=== PATIENT | female | born 1985 | race Caucasian/White ===

== ENCOUNTER 2016-05-18 19:45 | Emergency (ER) | payer MEDICAID ==
[2016-05-18 19:58] VITALS: BP 131/78; PULSE 68; RESP 16; TEMP 98.2; O2SAT 99
--- NOTE | 2016-05-18 20:38 | ED PDOC ---
HPI: Allergic Reaction Time Seen by Provider: 05/18/16 20:16 Chief Complaint (Nursing): Abnormal Skin Integrity Chief Complaint (Provider): abnormal skin integrity History Per: Patient History/Exam Limitations: no limitations Onset/Duration Of Symptoms: Days (x 1 year) Current Symptoms Are (Timing): Still Present Additional Complaint(s): Justin Martinez is a 30 year old female, with no previous medical history, who presents to the ED for the evaluation of skin discoloration to her left underarm which she states has been ongoing since "last summer". pt states discoloration is now presenting in the right armpit. Pt denies any additional medical complaints. PMD: none provided Past Medical History Reviewed: Historical Data, Nursing Documentation, Vital Signs Vital Signs: Last Vital Signs Temp 98.2 F 05/18/16 19:55 Pulse 68 05/18/16 19:55 Resp 16 05/18/16 19:55 BP 131/78 05/18/16 19:55 Pulse Ox 99 05/18/16 19:55 - Medical History PMH: No Chronic Diseases - Surgical History Surgical History: No Surg Hx - Family History Family History: States: Unknown Family Hx - Home Medications Home Medications: Ambulatory Orders Medication Instructions Recorded Famotidine [Pepcid] 20 mg PO BID #10 tab 02/28/15 Amoxicillin/Clavulanate [Augmentin 1 tab PO BID #14 tab 10/16/15 875 MG-125 MG] Ibuprofen [Motrin] 600 mg PO Q6 PRN #15 tab 10/16/15 Selenium Sulfide [Selenium Sulfide 5 ml TOP DAILY #120 ml 05/18/16 120 ml] - Allergies Allergies/Adverse Reactions: Allergies Allergy/AdvReac Type Severity Reaction Status Date / Time No Known Allergies Allergy Verified 05/18/16 19:55 Review of Systems ROS Statement: Except As Marked, All Systems Reviewed And Found Negative Skin: Positive for: Other (discoloration of the armpit ) Physical Exam - Reviewed Nursing Documentation Reviewed: Yes Vital Signs Reviewed: Yes - Physical Exam Appears: Positive for: Well, Non-toxic, No Acute Distress Skin: Positive for: Warm, Dry. Negative for: Normal Color (hyperpigmented skin region in bilateral axilla) Neurologic/Psych: Positive for: Alert, Oriented - ECG O2 Sat by Pulse Oximetry: 99 (RA) Pulse Ox Interpretation: Normal Disposition - Clinical Impression Clinical Impression: Tinea versicolor - Patient ED Disposition Is Patient to be Admitted: No - Disposition Referrals: [facility] [Outside] Disposition: Routine/Home Disposition Time: 20:20 Condition: FAIR Prescriptions: Selenium Sulfide [Selenium Sulfide 120 ml] 5 ml TOP DAILY #120 ml Instructions: Tinea Versicolor (ED) MDMA - Impression/Plan/Differential Dx Note:: Initial Impression: Tinea Versicolor Initial Plan: * physical exam * disposition Scribe Attestation: Documented by Marah Parsons, acting as a scribe for Trinity Gooden PA-C. Provider Scribe Attestation: All medical record entries made by the Scribe were at my direction and personally dictated by me. I have reviewed the chart and agree that the record accurately reflects my personal performance of the history, physical exam, medical decision making, and the department course for this patient. I have also personally directed, reviewed, and agree with the discharge instructions and disposition.
== END 2016-05-18 22:15 | disposition home or self-care (01) ==
LOC: H.ER 19:45
DX: B36.0 Pityriasis versicolor (principal)

== ENCOUNTER 2016-05-28 04:08 | Emergency (ER) | payer MEDICAID ==
[2016-05-28 04:27] VITALS: BP 128/92; PULSE 90; RESP 16; TEMP 98.2; O2SAT 99
[2016-05-28] MEDS ORDERED: Sodium Chloride 0.9% 1,000 ML IV STA (04:33)
--- NOTE | 2016-05-28 04:36 | ED PDOC ---
HPI: General Adult Time Seen by Provider: 05/28/16 04:27 Chief Complaint (Nursing): Dizziness/Lightheaded Chief Complaint (Provider): dizziness History Per: Patient History/Exam Limitations: no limitations Onset/Duration Of Symptoms: Hrs Current Symptoms Are (Timing): Gone Now Additional History Per: Patient Additional Complaint(s): 30 y/o female presents for eval of dizziness x 2 hours. Patient states she was out smoking hookah tonight; when she got home she started to feel dizzy so she laid down; patient states she then felt a sensation that her throat was "tight" and "closing", with associated chest tightness, sweating, and difficulty breathing. Patient states symptoms lasted approx 30 mins then improved when she stepped outside to come to ED. Denies fever, headache, vision changes, extremity numbness/weakness, chest pain, shortness of breath, palpitations, leg pain/swelling, recent travel, OCP use. Patient notes intermittent pain to right side of throat x months; states she is very concerned because she smokes hookah "a lot". Past Medical History Reviewed: Historical Data, Nursing Documentation, Vital Signs Vital Signs: Last Vital Signs Temp 98.2 F 05/28/16 04:23 Pulse 90 05/28/16 04:23 Resp 16 05/28/16 04:23 BP 128/92 H 05/28/16 04:23 Pulse Ox 99 05/28/16 06:11 - Medical History PMH: No Chronic Diseases - Surgical History Surgical History: No Surg Hx - Family History Family History: States: Unknown Family Hx - Social History Alcohol: None Drugs: Denies - Home Medications Home Medications: Ambulatory Orders Medication Instructions Recorded Famotidine [Pepcid] 20 mg PO BID #10 tab 02/28/15 Amoxicillin/Clavulanate [Augmentin 1 tab PO BID #14 tab 10/16/15 875 MG-125 MG] Ibuprofen [Motrin] 600 mg PO Q6 PRN #15 tab 10/16/15 Selenium Sulfide [Selenium Sulfide 5 ml TOP DAILY #120 ml 05/18/16 120 ml] - Allergies Allergies/Adverse Reactions: Allergies Allergy/AdvReac Type Severity Reaction Status Date / Time No Known Allergies Allergy Verified 05/18/16 19:55 Review of Systems ROS Statement: Except As Marked, All Systems Reviewed And Found Negative ENT: Positive for: Throat Pain Cardiovascular: Positive for: Chest Pain Neurological: Positive for: Dizziness Physical Exam - Reviewed Nursing Documentation Reviewed: Yes Vital Signs Reviewed: Yes - Physical Exam Appears: Positive for: Well, Non-toxic, No Acute Distress Head Exam: Positive for: ATRAUMATIC, NORMAL INSPECTION, NORMOCEPHALIC Skin: Positive for: Normal Color Eye Exam: Positive for: Normal appearance ENT: Positive for: Normal ENT Inspection Cardiovascular/Chest: Positive for: Regular Rate, Rhythm Respiratory: Positive for: Normal Breath Sounds Gastrointestinal/Abdominal: Positive for: Normal Exam Back: Positive for: Normal Inspection Extremity: Positive for: Normal ROM Lymphatic: Positive for: Normal Exam Neurologic/Psych: Positive for: Alert, Oriented - Laboratory Results Result Diagrams: 05/28/16 04:53 05/28/16 04:53 - ECG ECG: Positive for: Viewed By Me (reviewed by ED attending) ECG Rhythm: Positive for: Sinus Rhythm O2 Sat by Pulse Oximetry: 99 - Progress ED Course And Treament: labs, ekg, IV fluids, xray EXAM: CT Neck Without Intravenous Contrast CLINICAL HISTORY: 30 years old, female; Pain; Neck pain; Additional info: Right-sided throat pain TECHNIQUE: Axial computed tomography images of the neck without intravenous contrast. This CT exam was performed using one or more of the following dose reduction techniques: automated exposure control, adjustment of the mA and/or kV according to patient size, and/or use of iterative reconstruction technique. Coronal and sagittal reformatted images were created and reviewed. EXAM DATE/TIME: 05/28/2016 5:35 AM COMPARISON: No relevant prior studies available. FINDINGS: Nasopharynx: Unremarkable. Oropharynx: Unremarkable. No significant tonsillar enlargement. Hypopharynx: Unremarkable. Larynx: Unremarkable. Normal epiglottis. Trachea: Unremarkable. Retropharyngeal space: Unremarkable. Submandibular/parotid glands: Unremarkable. Glands are normal in size. Thyroid: Unremarkable. No enlarged or calcified nodules. Bones/joints: No acute fracture. Soft tissues: Unremarkable. Vasculature: No acute findings. Lymph nodes: Jugular, submandibular and submental nodes of 1 cm and less. Dental: Limited evaluation of oral cavity secondary to dental artifacts. Lung apices: Unremarkable as visualized. IMPRESSION: No acute inflammation, neck mass or pathological adenopathy. ON re-eval, patient resting comfortably; no acute complaints. Patient educated on findings discharged with instructions to follow up PMD. Follow up ENT. Ibuprofen/Tylenol PRN throat pain. Advised to stop smoking hookah. Return to ED for worsening/concerning symptoms. Disposition - Clinical Impression Clinical Impression: Anxiety attack, Pain in throat - Patient ED Disposition Is Patient to be Admitted: No Counseled Patient/Family Regarding: Studies Performed, Diagnosis, Need For Followup - Disposition Referrals: Ernst Trujillo MD [Staff Provider] - Disposition: Routine/Home Disposition Time: 06:09 Condition: GOOD Instructions: Anxiety (ED) Handoff Comments: pending xray, final dispo
[2016-05-28 04:56] LABS: BASO # 0.1 K/uL (0.0-0.2); BASO % 0.6 % (0.0-2.0); EOS # 0.1 K/uL (0.0-0.7); EOS % 0.7 % (0.0-4.0); HEMATOCRIT 38.2 % (34.0-47.0); LYMPH # 1.9 K/uL (1.0-4.3); LYMPH % 20.8 % (20.0-40.0); MEAN CELL VOLUME 89.9 fl (81.0-99.0); MEAN CORPUSCULAR HEMOGLOBIN 29.6 pg (27.0-31.0); MEAN CORPUSCULAR HGB CONC 32.9 g/dL (33.0-37.0); MEAN PLATELET VOLUME 8.9 fl (7.2-11.7); MONO # 0.5 K/uL (0.0-0.8); MONO % 5.3 % (0.0-10.0); NEUT # 6.6 K/uL (1.8-7.0); NEUT % 72.6 % (50.0-75.0)
[2016-05-28 05:07] LABS: ALB/GLOB RATIO 1.1 (1.0-2.1); ALKALINE PHOSPHATASE 47 U/L (38-126); ALT/SGPT 26 U/L (9-52); AST/SGOT 25 U/L (14-36); BILIRUBIN,TOTAL 1.2 mg/dl (0.2-1.3); BLOOD UREA NITROGEN 13 mg/dl (7-17); CALCIUM 9.4 mg/dL (8.4-10.2); CARBON DIOXIDE 26 mmol/L (22-30); CHLORIDE 104 mmol/L (98-107); GFR AFRICAN-AMERICAN > 60; GLUCOSE,RANDOM 116 mg/dL (65-105); POTASSIUM 3.7 MMOL/L (3.6-5.0); SODIUM 145 mmol/l (132-148); TOTAL PROTEIN 7.9 G/DL (6.3-8.2)
[2016-05-28 05:37] LABS: THYROID STIMULATING HORMONE 2.05 mIU/ML (0.46-4.68)
--- NOTE | 2016-05-28 06:07 | CT ---
EXAM: CT Neck Without Intravenous Contrast CLINICAL HISTORY: 30 years old, female; Pain; Neck pain; Additional info: Right-sided throat pain TECHNIQUE: Axial computed tomography images of the neck without intravenous contrast. This CT exam was performed using one or more of the following dose reduction techniques: automated exposure control, adjustment of the mA and/or kV according to patient size, and/or use of iterative reconstruction technique. Coronal and sagittal reformatted images were created and reviewed. EXAM DATE/TIME: 05/28/2016 5:35 AM COMPARISON: No relevant prior studies available. FINDINGS: Nasopharynx: Unremarkable. Oropharynx: Unremarkable. No significant tonsillar enlargement. Hypopharynx: Unremarkable. Larynx: Unremarkable. Normal epiglottis. Trachea: Unremarkable. Retropharyngeal space: Unremarkable. Submandibular/parotid glands: Unremarkable. Glands are normal in size. Thyroid: Unremarkable. No enlarged or calcified nodules. Bones/joints: No acute fracture. Soft tissues: Unremarkable. Vasculature: No acute findings. Lymph nodes: Jugular, submandibular and submental nodes of 1 cm and less. Dental: Limited evaluation of oral cavity secondary to dental artifacts. Lung apices: Unremarkable as visualized. IMPRESSION: No acute inflammation, neck mass or pathological adenopathy.
== END 2016-05-28 06:04 | disposition home or self-care (01) ==
LOC: H.ER 04:08
DX: F41.9 Anxiety disorder, unspecified (principal); R07.0 Pain in throat

== ENCOUNTER 2016-08-22 00:07 | Emergency (ER) | payer MEDICAID ==
[2016-08-22 00:35] VITALS: BP 128/77; PULSE 74; RESP 16; TEMP 98.5; O2SAT 100
--- NOTE | 2016-08-22 01:18 | ED PDOC ---
HPI: Female Pain Time Seen by Provider: 08/22/16 00:50 Chief Complaint (Nursing): Female Genitourinary Additional History Per: Patient Additional Complaint(s): 30F p/w irritation and itching for 1 week associated initially with whitish discharge which she treated with OTC 3- day Monistat, but then discharge changed to yellowish with an "odor" and the development of mild pelvic discomfort yesterday. She denies fevers, chills, urinary symptoms. 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: ; LMP- 08/07/16; STI- Chlamydia 4yrs ago; Sexually Active w/ men, last encounter 08/18/16, unprotected; Control- No; PAP- 4yrs ago WNL ALL: NKDA RIA: Doxacillin for acne Abnormal Vaginal Bleeding: No Last Menstral Period: 08/07/16 : 0 Para: 0 Miscarriage: 0 Past Medical History Vital Signs: Last Vital Signs Temp 36.9 C 08/22/16 00:32 Pulse 74 08/22/16 00:32 Resp 16 08/22/16 00:32 BP 128/77 08/22/16 00:32 Pulse Ox 100 08/22/16 00:32 - Family History Family History: States: Unknown Family Hx - Home Medications Home Medications: Ambulatory Orders Medication Instructions Recorded Famotidine [Pepcid] 20 mg PO BID #10 tab 02/28/15 Amoxicillin/Clavulanate [Augmentin 1 tab PO BID #14 tab 10/16/15 875 MG-125 MG] Ibuprofen [Motrin] 600 mg PO Q6 PRN #15 tab 10/16/15 Selenium Sulfide [Selenium Sulfide 5 ml TOP DAILY #120 ml 05/18/16 120 ml] Nitrofurantoin Macrocrystals 100 mg PO Q12H #14 cap 08/22/16 [Macrobid] - Allergies Allergies/Adverse Reactions: Allergies Allergy/AdvReac Type Severity Reaction Status Date / Time No Known Allergies Allergy Verified 05/18/16 19:55 Review of Systems Genitourinary Female: Positive for: Vaginal Discharge (yellowish), Pelvic Pain ( mild) Physical Exam - Reviewed Vital Signs Reviewed: Yes - Physical Exam Appears: Positive for: Well, Non-toxic, No Acute Distress Head Exam: Positive for: ATRAUMATIC, NORMAL INSPECTION Skin: Positive for: Normal Color, Warm Eye Exam: Positive for: EOMI, PERRL ENT: Negative for: Pharyngeal Erythema Neck: Positive for: Supple Cardiovascular/Chest: Positive for: Regular Rate, Rhythm. Negative for: JVD Respiratory: Positive for: Normal Breath Sounds. Negative for: Rales, Wheezing Gastrointestinal/Abdominal: Positive for: Normal Exam, Bowel Sounds, Soft. Negative for: Tenderness Pelvic Exam: Positive for: External Exam Normal, Speculum Exam Normal, Bimanual Exam Normal, No Cerv. Motion Tender, No Masses. Negative for: Discharge, Lesions, Mass, Ulcers Extremity: Positive for: Capillary Refill. Negative for: Pedal Edema Neurologic/Psych: Positive for: Alert, Mood/Affect (WNL) - ECG O2 Sat by Pulse Oximetry: 100 Medical Decision Making Medical Decision MakinF with UTI vs. STI vs. vs. BV - U preg - Urine dip - Urinalysis - GC/Chlamydia Culture Urine Dip- Positive for Nitrites, Blood, and LE Disposition - Clinical Impression Clinical Impression: Urinary tract infection, Urinary tract infection - Patient ED Disposition Is Patient to be Admitted: No Doctor Will See Patient In The: Office Counseled Patient/Family Regarding: Studies Performed, Diagnosis, Need For Followup, Rx Given - Disposition Disposition: Routine/Home Disposition Time: 01:59 Condition: GOOD
[2016-08-22 01:45] LABS: SQUAMOUS EPITHIAL 3 /hpf (0-5); URINE BACTERIA MANY (<OCC); URINE BILIRUBIN NEGATIVE (NEGATIVE); URINE BLOOD SMALL (NEGATIVE); URINE CLARITY SLIGHTY-CLOUDY (Clear); URINE COLOR YELLOW (YELLOW); URINE GLUCOSE (UA) NEG (Normal); URINE LEUKOCYTE ESTERASE SMALL Leu/uL (Negative); URINE NITRATE NEGATIVE (NEGATIVE); URINE PROTEIN 30 mg/dL (NEGATIVE); URINE UROBILINOGEN 0.2-1.0 mg/dL (0.2-1.0)
== END 2016-08-22 02:40 | disposition home or self-care (01) ==
LOC: H.ER 00:07
DX: N39.0 Urinary tract infection, site not specified (principal)

== ENCOUNTER 2017-10-20 17:20 | Emergency (ER) | payer MEDICAID ==
[2017-10-20 17:28] VITALS: RESP 18
[2017-10-20 18:42] LABS: BASO # 0.1 K/uL (0.0-0.2); BASO % 0.8 % (0.0-2.0); EOS # 0.1 K/uL (0.0-0.7); EOS % 0.9 % (0.0-4.0); HEMOGLOBIN 12.3 g/dL (12.0-16.0); LYMPH # 2.5 K/uL (1.0-4.3); MEAN CELL VOLUME 88.9 fl (81.0-99.0); MEAN CORPUSCULAR HEMOGLOBIN 29.9 pg (27.0-31.0); MEAN CORPUSCULAR HGB CONC 33.7 g/dL (33.0-37.0); MEAN PLATELET VOLUME 8.9 fl (7.2-11.7); MONO # 0.4 K/uL (0.0-0.8); MONO % 5.2 % (0.0-10.0); NEUT # 5.2 K/uL (1.8-7.0); NEUT % 63.1 % (50.0-75.0); RBC 4.12 Mil/uL (3.80-5.20); RED CELL DISTRIBUTION WIDTH 14.2 % (11.5-14.5); WHITE BLOOD COUNT 8.2 K/uL (4.8-10.8)
[2017-10-20 18:49] LABS: ALB/GLOB RATIO 1.2 (1.0-2.1); ALBUMIN 4.3 g/dL (3.5-5.0); ALT/SGPT 23 U/L (9-52); AST/SGOT 17 U/L (14-36); BLOOD UREA NITROGEN 13 mg/dl (7-17); CALCIUM 9.9 mg/dL (8.4-10.2); GFR NON-AFRICAN AMERICAN > 60
--- NOTE | 2017-10-20 19:38 | ED PDOC ---
HPI: General Adult Time Seen by Provider: 10/20/17 17:59 Chief Complaint (Nursing): Breast Problem History Per: Patient Additional Complaint(s): Pt. states this morning she noticed pain, redness, and swelling to the L breast. Pt. states she believes this is due to a hormonal issue as 3 weeks ago she developed cystic acne. 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 LMP: "last week." Denies nipple discharge, fever, family hx of breast CA, trauma, chest pain, SOB, cough. Past Medical History Reviewed: Historical Data, Nursing Documentation, Vital Signs Vital Signs: Last Vital Signs Temp 97.7 F 10/20/17 17:25 Pulse 77 10/20/17 17:25 Resp 18 10/20/17 17:25 BP 124/88 10/20/17 17:25 Pulse Ox 98 10/20/17 17:25 - Surgical History Surgical History: No Surg Hx - Family History Family History: States: No Known Family Hx - Home Medications Home Medications: Ambulatory Orders Medication Instructions Recorded Famotidine [Pepcid] 20 mg PO BID #10 tab 02/28/15 Amoxicillin/Clavulanate [Augmentin 1 tab PO BID #14 tab 10/16/15 875 MG-125 MG] Ibuprofen [Motrin] 600 mg PO Q6 PRN #15 tab 10/16/15 Selenium Sulfide [Selenium Sulfide 5 ml TOP DAILY #120 ml 05/18/16 120 ml] Nitrofurantoin Macrocrystals 100 mg PO Q12H #14 cap 08/22/16 [Macrobid] - Allergies Allergies/Adverse Reactions: Allergies Allergy/AdvReac Type Severity Reaction Status Date / Time No Known Allergies Allergy Verified 10/20/17 17:25 Review of Systems ROS Statement: Except As Marked, All Systems Reviewed And Found Negative Physical Exam - Physical Exam Appears: Positive for: Well, Non-toxic, No Acute Distress Skin: Positive for: Normal Color, Warm. 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 Disposition - Clinical Impression Clinical Impression: Cyst of breast - Patient ED Disposition Is Patient to be Admitted: Transfer of Care (Signed out to Shelton OLSEN pending US results and final disposition) - Disposition Disposition Time: 20:00 Condition: STABLE
--- NOTE | 2017-10-20 20:17 | ED PDOC ---
- Laboratory Results Result Diagrams: 10/20/17 18:30 10/20/17 18:30 Urine POC: Negative - ECG O2 Sat by Pulse Oximetry: 98 (RA) Pulse Ox Interpretation: Normal Medical Decision Making Medical Decision Making: Patient endorsed to narrative writer, Shelton OLSEN, at 1999 due to shift change. Pertinent details reviewed. Patient pending U/S results and surgical consult. Labs reviewed and grossly unremarkable. No elevation of WBCs. Upreg: Negative 2044 U/S reviewed, radiology report follows EXAM: US Left Breast, Limited CLINICAL HISTORY: 31 years old, female; Pain and signs and symptoms; Mass, lump , or swelling; Left; Breast pain; Additional info: 3 o'clock position with swelling and redness TECHNIQUE: Real-time ultrasound scan of the left breast with image documentation. COMPARISON: No relevant prior studies available. FINDINGS: Breast: At the 3:00 position 1 cm from the nipple is a complex lesion with cystic and solid components with no internal blood flow. Internal echogenic foci. This measures 1.6 x 1.1 x 1.5 cm possibly representing an abscess. 5 mm cystic lesion at the 3:00 position 2 cm from the nipple. IMPRESSION: 1. At the 3:00 position 1 cm from the nipple is a complex lesion with cystic and solid components with no internal blood flow. This measures 1.6 x 1.1 x 1.5 cm possibly representing an abscess. Recommend dedicated breast imaging center evaluation for this indeterminate lesion. 2. 5 mm cystic lesion at the 3:00 position 2 cm from the nipple. Recommend dedicated breast center imaging for this indeterminate lesion. Thank you for allowing us to participate in the care of your patient. Dictated and Authenticated by: Nacho Easley MD 10/20/2017 8:32 PM Eastern Time ([place] & [place]) Consult placed to surgical aides teacher. 2049 Case discussed with surgical aides teacher, Prakash Hart, who is agreeable to bedside evaluation. 2119 Per surgical consult, patient to be discharged on Augmentin, warm compresses encouraged, and can follow up in office with Dr Diaz. On re-evaluation, patient reports improvement of symptoms. On exam, patient remains AAOx3, in no acute distress. Lungs clear to auscultation, cardiac RRR, repeat neuro exam shows no focal findings. VSS, stable for discharge. Lab/Diagnostic results d/w the patient in great detail. Diagnosis of breast abscess d/w the patient. Based on history, exam and diagnostic results, plan will be for outpatient follow up with Dr Diza. Patient instructed to follow-up with pmd / referral provided / the clinic in 1- 2 days without fail. Advised to take medication as prescribed. Return to the emergency room at any time for any new or worsening symptoms. Patient states she fully agrees with and understands discharge instructions. States that she agrees with the plan and disposition. Verbalized and repeated discharge instructions and plan. I have given the patient opportunity to ask any additional questions. Disposition Counseled Patient/Family Regarding: Studies Performed, Diagnosis, Need For Followup, Rx Given - Clinical Impression Clinical Impression: Abscess of breast, Pain of breast - POA Present On Arrival: None - Disposition Referrals: Caleb Diaz MD [Staff Provider] - Disposition: Routine/Home Disposition Time: 21:25 Condition: STABLE Additional Instructions: The emergency medical care you received today was directed towards the acute presenting symptoms. If you were prescribed any medication, please fill it and give as directed. It may take several days for your symptoms to resolve. Return to the Emergency Department at any time if symptoms worsen, do not improve, or if any other problems arise. Please contact your doctor in 2 days for re-evaluation and follow up / or call one of the physicians/clinics you have been referred to that are listed on the Patient Visit Information form that is included in your discharge packet. Bring any paperwork you were given at discharge with you along with any medications to your follow up visit. Our treatment cannot replace ongoing medical care by a primary care provider (PCP) outside of the emergency department. apply warm compresses to affected area 4-5x/day. take prescribed antibiotics until complete. Prescriptions: Amoxicillin/Clavulanate [Augmentin 875 MG-125 MG] 1 tab PO BID #14 tab Naproxen 500 mg PO BID PRN #20 tab PRN Reason: Pain, Moderate (4-7) Instructions: Mastalgia, Mastitis, Boil (DC) Forms: [place] (Japanese) Print Language: GERMAN Results - Lab Results Lab Results: 10/20/17 10/20/17 18:30 18:30 WBC 8.2 RBC 4.12 Hgb 12.3 Hct 36.6 MCV 88.9 MCH 29.9 MCHC 33.7 RDW 14.2 Plt Count 271 MPV 8.9 Neut % (Auto) 63.1 Lymph % (Auto) 30.0 [place] % (Auto) 5.2 Eos % (Auto) 0.9 Baso % (Auto) 0.8 Neut # (Auto) 5.2 Lymph # (Auto) 2.5 [place] # (Auto) 0.4 Eos # (Auto) 0.1 Baso # (Auto) 0.1 Sodium 141 Potassium 3.7 Chloride 104 Carbon Dioxide 26 Anion Gap 15 BUN 13 Creatinine 0.6 L Est GFR ( Amer) > 60 Est GFR (Non-Af Amer) > 60 Random Glucose 86 Calcium 9.9 Total Bilirubin 1.7 H AST 17 ALT 23 Alkaline Phosphatase 33 L Total Protein 8.1 Albumin 4.3 Globulin 3.7 Albumin/Globulin Ratio 1.2
[2017-10-20] MEDS ORDERED: Amoxicillin-Clav 875-125 mg Tab PO STA (21:37)
[2017-10-20] MEDS ORDERED: Amoxicillin-Clav 875-125 mg Tab PO ONE (21:40)
--- NOTE | 2017-10-20 21:40 | CP.PCM.CON ---
History of Present Illness - History of Present Illness History of Present Illness: Surgery: Dr. Diaz CC: L breast pain HPI: 31F w. pmh of cystic acne presents to ED w. L side breast pain. Pt states that she woke up this morning and noticed pain/swelling and redness on her L breast. She states that the pain is constant. This has never happened before. She denies any drainage from the breast. No Fevers/Chills. U/S of breast in ED revealed two complex cystic lesions compatible with abscess. PMH: Cystic acne PSH: none Meds: doxycycline, niacinamide NKDA Social: No ETOH/drugs, +tobacco Fhx: No breast CA Review of Systems - Review of Systems All systems: reviewed and no additional remarkable complaints except (HPI) Past Patient History - Past Social History Smoking Status: [facility] - PSYCHIATRIC Hx Psychophysiologic Disorder: No Hx Substance Use: No - SURGICAL HISTORY Hx Surgeries: Yes (wisdom teeth removal) Meds Home Medications: Home Medication List Medication Instructions Recorded Confirmed Type Amoxicillin/Clavulanate [Augmentin 1 tab PO BID #14 tab 10/20/17 Rx 875 MG-125 MG] Naproxen 500 mg PO BID PRN #20 tab 10/20/17 Rx Allergies/Adverse Reactions: Allergies Allergy/AdvReac Type Severity Reaction Status Date / Time No Known Allergies Allergy Verified 10/20/17 17:25 Physical Exam - Constitutional Appears: Non-toxic, No Acute Distress - Head Exam Head Exam: ATRAUMATIC, NORMOCEPHALIC - Eye Exam Eye Exam: EOMI - ENT Exam ENT Exam: Mucous Membranes Moist - Respiratory Exam Respiratory Exam: NORMAL BREATHING PATTERN. absent: Accessory Muscle Use, Respiratory Distress - GI/Abdominal Exam GI & Abdominal Exam: Soft. absent: Distended, Firm, Guarding, Tenderness - Extremities Exam Extremities exam: Negative for: calf tenderness, pedal edema - Neurological Exam Neurological exam: Alert, Oriented x3 - Skin Additional comments: Breast Exam: L breast 3 o'clock position, firm, symmetrical, mobile mass, overlying erythema, tender to palpation, no fluctuance, no skin dimpling, no axillary adenopathy Results - Vital Signs Recent Vital Signs: Last Vital Signs Temp 97.7 F 10/20/17 17:25 Pulse 77 10/20/17 17:25 Resp 18 10/20/17 17:25 BP 124/88 10/20/17 17:25 Pulse Ox 98 10/20/17 21:30 - Labs Result Diagrams: 10/20/17 18:30 10/20/17 18:30 Labs: Laboratory Results - last 24 hr 10/20/17 10/20/17 18:30 18:30 WBC 8.2 RBC 4.12 Hgb 12.3 Hct 36.6 MCV 88.9 MCH 29.9 MCHC 33.7 RDW 14.2 Plt Count 271 MPV 8.9 Neut % (Auto) 63.1 Lymph % (Auto) 30.0 [place] % (Auto) 5.2 Eos % (Auto) 0.9 Baso % (Auto) 0.8 Neut # (Auto) 5.2 Lymph # (Auto) 2.5 [place] # (Auto) 0.4 Eos # (Auto) 0.1 Baso # (Auto) 0.1 Sodium 141 Potassium 3.7 Chloride 104 Carbon Dioxide 26 Anion Gap 15 BUN 13 Creatinine 0.6 L Est GFR ( Amer) > 60 Est GFR (Non-Af Amer) > 60 Random Glucose 86 Calcium 9.9 Total Bilirubin 1.7 H AST 17 ALT 23 Alkaline Phosphatase 33 L Total Protein 8.1 Albumin 4.3 Globulin 3.7 Albumin/Globulin Ratio 1.2 Assessment & Plan - Assessment and Plan (Free Text) Assessment: 31F w. L breast cyst vs abscess -U/S reviewed -Recommend Augmentin 875/125mg BID x 7 days -warm compresses 20 min TID -Tylenol/advil for pain -F/U w. Dr. Diaz in office -Return to ED if symptoms worsen -d/w attending Tanner PGY4
[2017-10-20 21:45] VITALS: BP 128/89; PULSE 82; TEMP 98; O2SAT 99
--- NOTE | 2017-10-21 12:05 | US ---
Date of service: 10/20/2017 PROCEDURE: Left breast ultrasound HISTORY: 3 o'clock position with swelling and redness COMPARISON: None TECHNIQUE: Standard protocol for this study/examination. FINDINGS: Complex mass with solid and cystic components 3 o'clock 1 cm from nipple. The area of interest measures 1.1 x 1.6 x 1.5 cm. Peripheral hypervascularity noted. The findings likely represent infectious/inflammatory etiologies such as abscess. 5 mm cyst left breast 3 o'clock 2 cm from nipple. IMPRESSION: Likely inflammatory/ infectious process based on history and presentation (swelling and redness 2-3 days duration). Follow-up to resolution advised. Concordant results (preliminary interpretation) provided by [facility]. Procedure Completed: 19:24 Preliminary ([facility]) Report: Dictated and Authenticated: 20:32. Final Interpretation: 12:03 October 21, 2017.
== END 2017-10-20 21:45 | disposition home or self-care (01) ==
LOC: H.ER 17:20
DX: N60.02 Solitary cyst of left breast (principal)

== ENCOUNTER 2017-10-31 20:13 | Emergency (ER) | payer MEDICAID ==
[2017-10-31 20:42] VITALS: RESP 18; O2SAT 99
--- NOTE | 2017-10-31 21:02 | ED PDOC ---
HPI: General Adult Time Seen by Provider: 10/31/17 20:45 Chief Complaint (Nursing): Abnormal Skin Integrity Chief Complaint (Provider): Breast Pain History Per: Patient History/Exam Limitations: no limitations Current Symptoms Are (Timing): Still Present Additional Complaint(s): 31 year old female presents to the ED for evaluation of persistent left breast pain. Patient states she was seen here on the 20 of October for a breast abscess and was treated with Augmentin, which she completed. She indicates she had an ultrasound done at that time which confirmed the breast abscess. She was seen by general surgery in the ED and advised to follow up outpatient. When she tried to follow up with the referred surgeon, she was told her insurance was not accepted. The clinic was unable to get patient in until mid November, prompting return to the ED. Patient indicates redness to the area went away and that the mass seems smaller but is still painful. Patient has no other complaints. De nies fever/chills, SOB/cough, nipple discharge or family history of breast cancer. LMP was 2 weeks ago. PMD: none Past Medical History Reviewed: Historical Data, Nursing Documentation, Vital Signs Vital Signs: Last Vital Signs Temp 98 F 10/31/17 21:50 Pulse 72 10/31/17 21:50 Resp 18 10/31/17 21:50 BP 122/60 10/31/17 21:50 Pulse Ox 99 10/31/17 23:33 - Medical History PMH: No Chronic Diseases - Surgical History Surgical History: No Surg Hx - Family History Family History: States: Unknown Family Hx - Home Medications Home Medications: Ambulatory Orders Medication Instructions Recorded Famotidine [Pepcid] 20 mg PO BID #10 tab 02/28/15 Amoxicillin/Clavulanate [Augmentin 1 tab PO BID #14 tab 10/16/15 875 MG-125 MG] Ibuprofen [Motrin] 600 mg PO Q6 PRN #15 tab 10/16/15 Selenium Sulfide [Selenium Sulfide 5 ml TOP DAILY #120 ml 05/18/16 120 ml] Nitrofurantoin Macrocrystals 100 mg PO Q12H #14 cap 08/22/16 [Macrobid] Amoxicillin/Clavulanate [Augmentin 1 tab PO BID #14 tab 10/20/17 875 MG-125 MG] Naproxen 500 mg PO BID PRN #20 tab 10/20/17 Naproxen 500 mg PO BID PRN #20 tab 10/31/17 - Allergies Allergies/Adverse Reactions: Allergies Allergy/AdvReac Type Severity Reaction Status Date / Time No Known Allergies Allergy Verified 10/20/17 17:25 Review of Systems ROS Statement: Except As Marked, All Systems Reviewed And Found Negative Musculoskeletal: Positive for: Other (Left breast pain) Physical Exam - Reviewed Nursing Documentation Reviewed: Yes Vital Signs Reviewed: Yes - Physical Exam Comments: GENERAL APPEARANCE: Patient is awake, alert, oriented x 3, in no acute distress. Resting comfortably. SKIN: Warm, dry; (-) cyanosis. ENMT: Mucous membranes moist. Airway patent: (-) stridor. NECK: Supple, FROM CHEST AND RESPIRATORY: (-) rhonchi, (-) rales, (-) wheezes; breath sounds equal bilaterally. Respirations even and nonlabored, speaking in full sentences. LEFT BREAST: from 3-5 o' clock position, palpable 2cm x 2cm cystic like mass with no overlying erythema or warmth. (-) axillary lymphadenopathy (-) nipple inversion or discharge HEART AND CARDIOVASCULAR: (-) irregularity ABDOMEN AND GI: Soft; (-) tenderness (-) guarding (-) distention. EXTREMITIES: (-) deformity NEURO AND PSYCH: Mental status as above. Cranial nerves grossly intact; strength symmetric. Gait: steady. Speech: clear. 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 - Laboratory Results Urine POC: Negative - ECG O2 Sat by Pulse Oximetry: 99 (RA) Pulse Ox Interpretation: Normal Medical Decision Making Medical Decision Making: Initial Impression: Breast mass, probable cyst Initial Plan: -- test --Toradol 30mg IM --Consult to general surgery placed. Upreg: negative 2114 Case discussed with general surgery elocution teacher, Dr Blanco. States that patient can follow up in office ([place]) with him after 3pm on Tuesday or at any point on Tuesday. Recommends discharge with NSAID and advises no further intervention in ED at this time. On re-evaluation, patient reports improvement of symptoms. On exam, patient remains AAOx3, in no acute distress. Lungs clear to auscultation, cardiac RRR, repeat neuro exam shows no focal findings. Vitals stable. Lab/Diagnostic results d/w the patient in great detail. Diagnosis of breast mass/pain d/w the patient. Based on history, exam and diagnostic results, plan will be for outpatient follow up with Dr Blanco. Patient instructed to follow-up with pmd / referral provided / the clinic in 1- 2 days without fail. Advised to take medication as prescribed. Return to the emergency room at any time for any new or worsening symptoms. Patient states she fully agrees with and understands discharge instructions. States that she agrees with the plan and disposition. Verbalized and repeated discharge instructions and plan. I have given the patient opportunity to ask any additional questions. Scribe Attestation: Documented by Misha Liz acting as a scribe for Simran OCONNOR. Provider Scribe Attestation: All medical record entries made by the Scribe were at my direction and personally dictated by me. I have reviewed the chart and agree that the record accurately reflects my personal performance of the history, physical exam, medical decision making, and the department course for this patient. I have also personally directed, reviewed, and agree with the discharge instructions and disposition. Disposition - Clinical Impression Clinical Impression: Breast pain, left, Breast mass, left - Patient ED Disposition Is Patient to be Admitted: No Counseled Patient/Family Regarding: Studies Performed, Diagnosis, Need For Followup, Rx Given - Disposition Referrals: Alexey Blanco MD [Staff Provider] - Disposition: Routine/Home Disposition Time: 21:23 Condition: STABLE Additional Instructions: Call and make appt with Dr Blanco in office Tuesday after 3pm or anytime Tuesday. The emergency medical care you received today was directed at your acute symptoms. If you were prescribed any medication, please fill it and take as directed. It may take several days for your symptoms to resolve. Return to the Emergency Department if your symptoms worsen, do not improve, or if you have any other problems. Please contact your doctor in 2 days for re-evaluation and follow up / or call one of the physicians/clinics you have been referred to that are listed on the Patient Visit Information form that is included in your discharge packet. Bring any paperwork you were given at discharge with you along with any medications you are taking to your follow up visit. Our treatment cannot replace ongoing medical care by a primary care provider (PCP) outside of the emergency department. Prescriptions: Naproxen 500 mg PO BID PRN #20 tab PRN Reason: Pain, Moderate (4-7) Instructions: Mastalgia, Common Breast Problems Forms: [facility] (Hebrew) Print Language: KOREAN - POA Present On Arrival: None
[2017-10-31 21:51] VITALS: BP 122/60; PULSE 72; TEMP 98
== END 2017-10-31 21:50 | disposition home or self-care (01) ==
LOC: H.ER 20:13
DX: N63.20 Unspecified lump in the left breast, unspecified quadrant (principal); N64.4 Mastodynia
CPT/HCPCS: 81025; 96372; 99282; J1885